=== PATIENT | male | born 1970 | race Caucasian/White ===

== ENCOUNTER 2024-12-30 11:24 | Emergency (ER) | payer OTHER, SELFPAY ==
[2024-12-30 11:29] VITALS: BP 123/84
--- NOTE | 2024-12-30 12:02 | ED.GENMED ---
History of Present Illness
<Evangelina Barber ASSISTANT FOOD SERVICE MANAGER - Last Filed: 12/30/24 18:58>
General
Chief Complaint: Cold/Flu/URI Symptoms
Source: patient
Exam Limitations: none
Time Seen by Provider: 12/30/24 11:52
Nursing documentation reviewed up to this point in time: agreed with
History of Present Illness
History of Present Illness:
54-year-old male with history of anxiety/depression presents for nausea and diarrhea for the past 3 days, headache and general body aches, starting after attending the [employer]. Initially he was vomiting but this has subsided. He reports
persistent watery diarrhea occurring approximately every 20 minutes with some incontinence, unable to make it to the toilet in time. He is hungry but is too nauseous and when he tries to eat anything he either vomits or has diarrhea. The diarrhea
has been nonbloody, described as 'yellow.' No recent travel, no known sick contacts. His at bedside states he has felt 'very hot' at times and has broken out in sweats. He denies chest pain, trouble breathing or abdominal pain. His last
diarrhea was about 30 minutes ago.
Past History
<Evangelina Barber, ASSISTANT FOOD SERVICE MANAGER - Last Filed: 12/30/24 18:58>
Past History
ED Past Medical History: None and Psychiatric (Anxiety/depression, takes Zoloft, Wellbutrin and Adderall)
ED Past Surgical History: Orthopedic (Knee surgery, recent corrective corneal surgery)
Social History
Tobacco: Non-smoker
Alcohol: Occasional
Drug: None
Personal:
Living: with family
Employment: Employed
Family History
Family History: Other (Noncontributory)
Review of Systems
<Evangelina Barber, ASSISTANT FOOD SERVICE MANAGER - Last Filed: 12/30/24 18:58>
Review of Systems
Allergies reviewed?: Yes
All Other Systems: ROS reviewed and negative except as documented in HPI and ROS
Phy Exam
<Evangelina Barber, ASSISTANT FOOD SERVICE MANAGER - Last Filed: 12/30/24 18:58>
Physical Exam
Physical Exam:
GENERAL: No acute distress. A&Ox3.
CONSTITUTIONAL: Afebrile.
EYES: clear, conjunctivae normal
ENMT: moist mucus membranes, Pharynx nl
RESPIRATORY: Regular respirations, nonlabored, lungs clear.
CARDIOVASCULAR: Regular rate and rhythm, no murmurs, no rubs.
GI: Soft, nontender, normal BS
MUSCULOSKELETAL: Moves with ease. Well perfused.
SKIN: Warm, dry, pink
PSYCH: Normal mood and affect. Well kept, interactive and appropriate
NEUROLOGIC: Awake, alert and oriented. No focal neurological deficits
Course
<Evangelina Barber, ASSISTANT FOOD SERVICE MANAGER - Last Filed: 12/30/24 18:58>
Orders/Labs/Results
Orders:
Orders
12/30/24 12:00
0.9% Sodium Chloride 1000 ml [Nss] 1,000 ml IV BOLUS
Ketorolac [Toradol] 15 mg IV NOW STA
Ondansetron Injectable [Zofran] 4 mg IV NOW STA
12/30/24 12:35
COVID-19 Antigen Urgent
Source: Nasal Swab
Complete Blood Count/With Diff Urgent
Comprehensive Metabolic Panel Urgent
Lipase Urgent
Influenza A+B Rapid Molecular Urgent
JANELLE Source: Nasal Swab
Specimen Description:
STOOL [C difficile Antigen & Toxins] Urgent
JANELLE Source: Feces/Stool
Specimen Description:
Date Specimen was Collected: 12/30/24
Time Specimen was Collected: 12:34
Stool Culture Urgent
JANELLE Source: Feces/Stool
Specimen Description:
Date Specimen was Collected: 12/30/24
Time Specimen was Collected: 12:34
Abnormal Lab Results
09/28/25
12:35
Abs Immat Gran (auto) 0.1 H 10^3/uL
(0-0.05)
Absolute Lymphs (auto) 0.8 L 10^3/uL
(1.2-3.4)
Immature Gran % 1.0 H %
(0-0.5)
Neutrophils % 80.5 H %
(42.2-75.2)
Lymphocytes % 10.9 L %
(20.5-51.1)
Sodium 132 L mmol/L
(135-145)
BUN 26 H mg/dl
(9-20)
Glucose 117 H mg/dl
(70-99)
12/30/24 12:35
12/30/24 12:35
Vital Signs
Initial and Last Documented VS:
Initial Vital Signs
Temp Pulse Resp BP Pulse Ox
98.4 F 87 18 123/84 100
12/30/24 11:29 12/30/24 11:29 12/30/24 11:29 12/30/24 11:29 12/30/24 11:29
Last Documented Vital Signs
Temp Pulse Resp BP Pulse Ox
98.4 F 87 18 121/82 99
12/30/24 11:29 12/30/24 11:29 12/30/24 11:29 12/30/24 14:00 12/30/24 14:15
<Yomi Ritchie PA-C - Last Filed: 01/02/25 09:20>
Orders/Labs/Results
Orders:
Orders
12/30/24 12:00
0.9% Sodium Chloride 1000 ml [Nss] 1,000 ml IV BOLUS
Ketorolac [Toradol] 15 mg IV NOW STA
Ondansetron Injectable [Zofran] 4 mg IV NOW STA
12/30/24 12:35
COVID-19 Antigen Urgent
Source: Nasal Swab
Complete Blood Count/With Diff Urgent
Comprehensive Metabolic Panel Urgent
Lipase Urgent
Influenza A+B Rapid Molecular Urgent
JANELLE Source: Nasal Swab
Specimen Description:
STOOL [C difficile Antigen & Toxins] Urgent
JANELLE Source: Feces/Stool
Specimen Description:
Date Specimen was Collected: 12/30/24
Time Specimen was Collected: 12:34
Stool Culture Urgent
JANELLE Source: Feces/Stool
Specimen Description:
Date Specimen was Collected: 12/30/24
Time Specimen was Collected: 12:34
Abnormal Lab Results
12/30/24
12:35
Abs Immat Gran (auto) 0.1 H 10^3/uL
(0-0.05)
Absolute Lymphs (auto) 0.8 L 10^3/uL
(1.2-3.4)
Immature Gran % 1.0 H %
(0-0.5)
Neutrophils % 80.5 H %
(42.2-75.2)
Lymphocytes % 10.9 L %
(20.5-51.1)
Sodium 132 L mmol/L
(135-145)
BUN 26 H mg/dl
(9-20)
Glucose 117 H mg/dl
(70-99)
12/30/24 12:35
12/30/24 12:35
Vital Signs
Initial and Last Documented VS:
Initial Vital Signs
Temp Pulse Resp BP Pulse Ox
98.4 F 87 18 123/84 100
12/30/24 11:29 12/30/24 11:29 12/30/24 11:12/30/24 11:12/30/24 11:29
Last Documented Vital Signs
Temp Pulse Resp BP Pulse Ox
98.4 F 87 18 121/82 99
12/30/24 11:12/30/24 11:12/30/24 11:29 12/30/24 14:00 12/30/24 14:15
<Evangelina Barber ASSISTANT FOOD SERVICE MANAGER - Last Filed: 12/30/24 18:58>
MDM/Problems Addressed
Differential Diagnosis Includes:
Infectious gastroenteritis, food poisoning, viral gastroenteritis,
MDM/Problems Addressed:
54-year-old male with history of anxiety/depression presents for nausea and diarrhea for the past 3 days, headache and general body aches, starting after attending the [employer]. Initially he was vomiting but this has subsided. He reports
persistent watery diarrhea occurring approximately every 20 minutes with some incontinence, unable to make it to the toilet in time. He is hungry but is too nauseous and when he tries to eat anything he either vomits or has diarrhea. The diarrhea
has been nonbloody, described as 'yellow.' No recent travel, no known sick contacts. His at bedside states he has felt 'very hot' at times and has broken out in sweats. He denies chest pain, trouble breathing or abdominal pain. His last
diarrhea was about 30 minutes ago.
Afebrile, NAD
1:00 PM:
CBC unremarkable CMP
BUN 26, otherwise unremarkable, IV fluids infusing for mild dehydration COVID-negative
Influenza A and B are negative
Stool is negative for toxigenic C. difficile
2:00 PM:
Patient states he is feeling better after IV fluids and medications
This is most likely viral gastroenteritis. Imodium, rx for Zofran sent to his pharmacy.
Stool culture pending.
<Evangelina Barber ASSISTANT FOOD SERVICE MANAGER - Last Filed: 12/30/24 18:58>
*Pulse Oximetry
SaO2: 100
Oxygen Mode of Delivery: Room air
Patient hypoxic: no
*Critical Care Note
Total Time (30-74mins, 75-104mins- exclusive of procedures): Not Applicable
<Yomi Ritchie PA-C - Last Filed: 01/02/25 09:20>
Update Note
Update Note:
January 02, 2025, 9:19 AM: Patient tested positive for Salmonella, no Shigella toxin noted. Sensitive to Bactrim. Patient states still having persistent diarrhea, abdominal cramping and nausea for the last 6 days. Given prolonged duration of
illness combined with continued symptoms will prescribe patient Bactrim for 1 week. Additional prescription for Zofran was sent to pharmacy. Patient aware return precautions to the ER
ED Attending Note
<Evangelina Barber NP - Last Filed: 12/30/24 18:58>
-
Portions of this chart may have been created with voice recognition software.� Occasional wrong word or��sound alike� substitutions may have occurred due to the inherent limitations of voice recognition software.
Discharge Plan
Departure
Patient Disposition: Home (Routine Discharge)
Date of Disposition: 12/30/24
Time of Disposition: 14:08
Patient with high blood pressure during this ER visit?: No
Condition: Good
Discharge Problem:
Acute gastroenteritis
Instructions: Viral gastroenteritis in adults
Prescriptions:
New
ondansetron 4 mg tablet,disintegrating
4 mg PO Q8H PRN (Reason: nausea and vomiting) 5 Days Qty: 14 0RF
sulfamethoxazole-trimethoprim [Bactrim DS] 800-160 mg tablet
1 tab PO BID 7 Days Qty: 14 0RF
ondansetron 4 mg tablet,disintegrating
4 mg PO TIDPRN PRN (Reason: nausea/vomiting) Qty: 10 0RF
No Action
hydrocodone-acetaminophen [Vicodin] 1 EACH tablet
1 ea PO Q6HPRN PRN (Reason: pain) Qty: 20 0RF
hydrocodone-acetaminophen [Vicodin] 1 EACH tablet
1 tab PO Q6HPRN PRN (Reason: severe pain) Qty: 14 0RF
homatropine HBr 1 DROP drops
0 drp OPHTHALMIC TID Qty: 0 0RF
moxifloxacin [Vigamox] 0.5 % drops
1 drp OPHTHALMIC TID Qty: 1 0RF
oxycodone-acetaminophen 5 MG/325 MG tablet
1 tab PO Q6HPRN PRN (Reason: pain) Qty: 15 0RF
Referrals:
Raad Cross, DO [Family Provider, Family Practice] - As needed
Activity Restrictions/Additional Instructions:
As discussed, this is most likely viral gastroenteritis. I sent a prescription for Zofran to your pharmacy to use as needed for nausea.
Also, use Imodium as directed on the label for your diarrhea.
Interventions
Interventions:
*Risk Screen - Suicide Last Done: 12/30/24 11:29
*General Assessment Last Done: 12/30/24 11:29
*Neglect/Abuse Screening Last Done: 12/30/24 12:47
*ED- Fall Risk Assessment Last Done: 12/30/24 12:46
*ED COVID-19 Vaccine History Last Done: 12/30/24 12:46
*Nursing Disposition Last Done: 12/30/24 14:17
ED- Pulmonary Assessment Last Done: 12/30/24 12:48
Discharge Date and Time
Discharge Date/Time: 12/30/24 14:40
Print Language: POLISH
[2024-12-30] MEDS: NSS 1000 IV (12:44)
[2024-12-30] MEDS: TORADOL 15 MG IV (12:44)
[2024-12-30] MEDS: ZOFRAN 4 MG IV (12:44)
[2024-12-30 12:45] VITALS: BP 119/83
[2024-12-30 12:46] VITALS: BMI 28.5
[2024-12-30 13:00] VITALS: BP 119/79
[2024-12-30 13:13] LABS: Hematocrit 47.9 % (39.0-52.0); Hemoglobin 17.0 g/dL (13.0-18.0); Mean Corp Hgb Conc. 35.5 g/dL (33.0-37.0); Mean Corpuscular Volume 86.5 fL (80.0-94.0); Nucleated Red Blood Cells % 0 % (-); Platelet Count 221 10^3/uL (130-400); Red Cell Dist. Width 12.7 % (11.5-14.5)
[2024-12-30 13:29] LABS: ALT (SGPT) 37 U/L (0-50); AST (SGOT) 32 U/L (17-59); Albumin 4.6 g/dl (3.5-5.0); Alkaline Phosphatase 63 U/L (38-126); Blood Urea Nitrogen 26 mg/dl (9-20); Calcium 9.4 mg/dl (8.4-10.2); Carbon Dioxide 24 mmol/L (22-30); Chloride 98 mmol/L (98-107); Estimated Creatinine Clearance 73 ml/min; Glucose 117 mg/dl (70-99); Lipase 83 U/L (23-300); Potassium 3.9 mmol/L (3.5-5.1); Sodium 132 mmol/L (135-145); Total Protein 7.6 g/dl (6.3-8.2); eGFR > 60.00
[2024-12-30 13:41] LABS: COVID-19 Antigen Negative (Negative)
[2024-12-30 14:00] VITALS: BP 121/82
== END 2024-12-30 14:40 | disposition home or self-care (01) ==
LOC: EMR 11:24
PROVIDERS: Registered Nurse; EMERGENCY PHYSICIAN Emergency Medicine; FAMILY PHYSICIAN Family Medicine
DX: K52.9 Noninfective gastroenteritis and colitis, unspecified (principal); F41.8 Other specified anxiety disorders; R11.0 Nausea; R32 Unspecified urinary incontinence
CPT/HCPCS: 99283; 96374; 96375; 96361; 80053; 83690; 85025; 87045; 87046; 87077; 87186; 87324; 87427; 87449; 87502; 87811